=== PATIENT | male | born 1960 | race Caucasian/White ===

== ENCOUNTER → 2021-11-13 | Outpatient (CLI) | payer BC | LOC: LAB 15:30 → EDSTATUS 11-15 14:30 | PROVIDERS: ATTEND Internal Medicine Gastroenterology | DX: Z01.812 Encounter for preprocedural laboratory examination (principal); R14.0 Abdominal distension (gaseous); R11.2 Nausea with vomiting, unspecified; R10.9 Unspecified abdominal pain | CPT/HCPCS: 0223U; 36415 ==